=== PATIENT | male | born 1965 | race Caucasian/White ===

== ENCOUNTER → 2022-04-19 09:44 | Outpatient (BNVA) | payer BC, SELFPAY | PROVIDERS: PCP Family Medicine; Visit Provider Psychiatry & Neurology Neurology | DX: Z13.89 Encounter for screening for other disorder (principal) ==

== ENCOUNTER → 2022-05-16 10:25 | Outpatient (REF) | payer BC, SELFPAY | LOC: HO.SL 10:25 | PROVIDERS: Visit Provider Psychiatry & Neurology Neurology | DX: R06.83 Snoring (principal); G47.10 Hypersomnia, unspecified; R06.81 Apnea, not elsewhere classified | CPT/HCPCS: 95806 ==